=== PATIENT | female | born 1995 | race Caucasian/White ===

== ENCOUNTER 2020-11-13 17:03 | Inpatient (IN) | payer OTHER, SELFPAY ==
--- NOTE | 2020-11-13 18:40 | PM.OBTRLD ---
Visit Information Visit Information Date of evaluation: 11/13/20 On-call OB Provider: Kelsey Mendoza Reason for Evaluation: Yes rule out labor Vital Signs Vital Signs: Blood pressure 122/84, pulse of 95, temperature 36.4? Review of Systems Review of Systems Narrative: Patient complaining of contractions since yesterday that are increasing. No leakage of fluid. No fevers. No headaches, scotomata, epigastric pain. Good movement. Exam Narrative Exam Narrative: Abdomen is soft, nontender. Fetus is vertex. Extremities without edema and nontender. Evaluation Evaluation Baseline heart rate: 140 Variability: Moderate (11-25) monitor accelerations: Present Monitor Decelerations: Absent Contraction Frequency (minutes): 5 Uterine Contraction Intensity: Strong/Firm Category of Tracing: Reactive Status: Category l Cervical dilation (cm): 2 Cervical effacement (%): 100 station: 0 Diagnosis, Plan/Disposition Final Diagnosis (1) 38 weeks gestation of : Status: Acute (2) POTS (postural orthostatic tachycardia syndrome): Status: Acute Plan/Disposition Plan: Patient decided that she would prefer to do her planned here. OB Disposition: admit to hospital
--- NOTE | 2020-11-13 19:08 | PM.PREOP ---
Pre-operative Note COVID-19 COVID-19 status: Result pending Result date/Date tested (Pos, Neg/Pending): 11/13/20 Interval Note History & Physical reviewed/Exam performed by Physician: Yes Changes to H&P: No
--- NOTE | 2020-11-13 19:09 | PM.OBHP.1 ---
OB HPI Date/Time Date of admission: 11/13/20 Date Patient Seen: 11/13/20 Time Patient Seen: 19:10 History of Present Condition Chief complaint: eval of labor : 1 Para: 0 Estimated Date of Delivery: 11/22/20 Estimated Gestational Age (weeks): 38 Narrative: Ary Limon is a 24 year old female admitted for primary section for active labor and POTS syndrome Indications Operative indications ( section): elective (Pots syndrome, planned section to avoid pain in labor) History of Present care: good care (Per patient we do not have all of her records) Dating criteria: LMP confirmed by 1st trimester US Ultrasounds: normal mid trimester US (Per patient we do not have the records) Obstetrical complications: none Medical complications: cardiovascular (Pots syndrome postural orthostatic tachycardia syndrome) Preadmission Labs Blood type: O (+) positive -: Antibody screen: negative, GBS status: unknown, HBsAG: negative, HIV: negative, HSV 1: positive and RPR/VDLR: negative -: Chlamydia screen: not detected and Gonorrhea screen: not detected -: Rubella: immune Evaluation Evaluation Baseline heart rate: 140 Variability: Moderate (11-25) monitor accelerations: Present Monitor Decelerations: Absent Contraction Frequency (minutes): 5 Uterine Contraction Intensity: Strong/Firm Category of Tracing: Reactive Status: Category l Cervical dilation (cm): 2 Cervical effacement (%): 100 station: 0 Meds Home Medications and Allergies Home Medications Medication Instructions Recorded Confirmed Type valacyclovir 500 mg DAILY 11/13/20 11/13/20 History Allergies Allergy/AdvReac Type Severity Reaction Status Date / Time amoxicillin Allergy Intermediate hives Verified 11/13/20 19:21 Review of Systems Review of Systems Narrative: Good movement. No headaches, scotomata, epigastric pain. No leakage of fluid. Regular painful contractions. No current herpes outbreak. No chest pains or shortness of breath. ROS: Yes All systems reviewed with the patient and are negative except as otherwise documented Exam Narrative Exam Narrative: HEENT exam within normal limits. Lungs are clear to auscultation percussion. Heart is regular rate and rhythm no S3-S4 murmurs. Abdomen is soft, nontender. Contractions are palpably firm. Fetus is vertex. Extremities without edema and nontender . Assessment and Plan Assessment and Plan Assessment and Plan narrative: 38 week gestation scheduled for primary section for POTS syndrome arrived in active labor is requesting section. Consent form was reviewed with the patient. Risk of damage to internal structures such as bowel, bladder, ureters that could require additional surgery to repair. Risk of infection, bleeding that could require transfusion which the patient is agreeable to. Reaction to medication or anesthesia that could result in or permanent or partial disability. Consent form signed and questions answered.
[2020-11-13 19:39] LABS: Add Manual Diff / Slide Review NO; Basophils Absolute Auto 0 /uL (0-100); Basophils Percent Auto 0.3 % (0-2); Eosinophils Absolute Auto 0 /uL (0-450); Eosinophils Percent Auto 0.2 % (2-4); Hematocrit 33.8 % (36-46); Hemoglobin 11.5 g/dL (12.0-16.0); Lymphocytes Absolute Auto 1500 /uL (1100-4500); Lymphocytes Percent Auto 15.6 % (25-40); Mean Corpuscular HGB Conc 33.9 % (30-36); Mean Corpuscular Volume 94.3 fL (80-100); Monocytes Absolute Auto 700 /uL (0-900); Monocytes Percent Auto 6.8 % (3-14); Neutrophils Absolute Auto 7500 /uL (1500-7000); Neutrophils Percent Auto 77.1 % (50-75); Platelet Count 191 X10^3/uL (150-400); Red Blood Cell Count 3.58 X10^6/uL (4.0-5.2); Red Cell Distribution Width 13.4 % (11.6-14.8); White Blood Cell Count 9.7 X10^3/uL (4.5-11.0)
[2020-11-13 20:13] LABS: COVID19 - ADMIT (NP swab/PCR) Negative (Negative)
[2020-11-13] MEDS: CEFAZOLIN 1 GM VIAL 2 GM IV (20:15)
--- NOTE | 2020-11-13 20:29 | SUR.OPER ---
Supine on Padded OR bed, head on pillow, safety belt at thigh, arms secured on padded arm boards at <90 degrees abduction. Bump under right buttock. Legs uncrossed with pillow under knees, gel pad to heels, tape over blanket to lower legs.
--- NOTE | 2020-11-13 20:33 | SUR.OPER ---
FHT 144 Live male born at 2022
--- NOTE | 2020-11-13 20:56 | PM.OBCS.1 ---
Operative Date/Time/Diagnoses Date of procedure: 11/13/20 Time of procedure: 20:57 Pre-op diagnosis: 38 week gestation in active labor with planned section for POTS syndrome Post-op diagnosis: same Procedure & Clinicians Procedure: Primary low-transverse section Same procedure as scheduled: Yes Indications: 38 week gestation with planned section active labor Surgeon: Kelsey Mendoza Click Yes if Unassisted: Yes Anesthesia Type: Spinal Operative Notes Findings: Normal tubes, ovaries, uterus. Viable male . Closure Type: primary Specimen(s): cord blood Intraoperative meds administered: Duramorph and Pitocin Applied: Catheter (Momin) Estimated Blood Loss (mL): 300 Blood products transfused: none Procedure in detail: The patient was brought to the operating room where she underwent a spinal for anesthesia. She was placed in a supine position with a left lateral tilt. A Momin catheter was placed. Pulsatile stockings were placed and functional throughout the case. 2 g of Ancef were given IV prior to the incision. Warming was in place. The patient was prepped and draped in usual sterile fashion. A low transverse incision was made with a scalpel and the incision was carried down to the fascial layer which was incised transversely with scissors. The midline attachments are superiorly and inferiorly. Some bleeding was controlled Bovie. The rectus muscles were in the midline and the peritoneal incision was made with no damage to internal structures. The peritoneum was incised and superiorly and inferiorly. The incision was stretched with the surgeon and document control assistant placing traction. Bladder blade was placed and a bladder flap was developed and the bladder held away from the lower uterine segment. An incision was made in the uterus with the scalpel and the incision was extended with stretching. The head was elevated out of the abdomen and with fundal pressure by the document control assistant the baby was delivered. The was bulb suctioned for clear fluid and handed off to the warmer. Cord blood was collected. The placenta delivered spontaneously with traction. The uterus was cleaned with clean laps. The uterine incision was closed in 2 layers of 0 chromic suture the first a running locking layer the second an imbricating layer. The document control assistant was helping to expose the incision. The bladder peritoneum was repaired with 2-0 Vicryl suture. The gutters were cleaned of any remaining fluids and ovaries and tubes were observed to be normal. Adequate hemostasis was noted. The perineum was closed with 2-0 Vicryl suture. The fascia layer was closed with 0 Vicryl suture with 2 stitches. The incision was irrigated and adequate hemostasis noted. The incision was closed with interrupted 3-0 Vicryl sutures and then a subcuticular stitch of 4-0 Vicryl suture. Steri-Strips were placed. The uterus was massaged to remove any clots. The patient went to recovery room in good condition. Counts of instruments and sponges were correct. Complications: none [place] Baby 1: Infant Gender: Male Presentation: vertex Position: Left Occiput Anterior Placental Delivery Description: Expressed Cord Vessel Description: 3 Vessels score (1 min): 9 score (5 min): 9 weight: 6 lb 5 oz Post-operative Condition: stable Disposition: other ( Center) Aftercare: routine postop (Monitoring for episodes of tachycardia)
[2020-11-13 20:59] VITALS: BP 105/70; PULSE 109; RESP 18; TEMP 36.4; O2SAT 100
[2020-11-13 21:04] VITALS: BP 109/73; PULSE 89; RESP 11; O2SAT 99
[2020-11-13 21:07] VITALS: BP 116/75; PULSE 83; RESP 11; TEMP 36.4; O2SAT 100
[2020-11-13] MEDS: LACTATED RINGERS 1,000 ML 100 ML IV (21:40)
[2020-11-13] MEDS: KETOROLAC 30 MG/ML VIAL IV (21:40)
[2020-11-13] MEDS: OXYCODONE IR 5 MG TABLET PO (23:38)
[2020-11-13] MEDS: ACETAMINOPHEN 325 MG TABLET 650 MG PO (23:39)
[2020-11-14] MEDS: IBUPROFEN 600 MG TABLET PO ×3 (03:24→19:22)
[2020-11-14] MEDS: OXYCODONE IR 5 MG TABLET PO ×4 (04:00→20:54)
[2020-11-14 07:20] LABS: Add Manual Diff / Slide Review NO; Basophils Absolute Auto 0 /uL (0-100); Basophils Percent Auto 0.2 % (0-2); Eosinophils Absolute Auto 0 /uL (0-450); Eosinophils Percent Auto 0.2 % (2-4); Hematocrit 30.2 % (36-46); Hemoglobin 10.3 g/dL (12.0-16.0); Lymphocytes Absolute Auto 1100 /uL (1100-4500); Lymphocytes Percent Auto 10.6 % (25-40); Mean Corpuscular HGB Conc 34.2 % (30-36); Mean Corpuscular Hemoglobin 32.2 PG (26-34); Mean Corpuscular Volume 94.2 fL (80-100); Monocytes Absolute Auto 600 /uL (0-900); Monocytes Percent Auto 6.1 % (3-14); Neutrophils Absolute Auto 8600 /uL (1500-7000); Neutrophils Percent Auto 82.9 % (50-75); Platelet Count 153 X10^3/uL (150-400); White Blood Cell Count 10.3 X10^3/uL (4.5-11.0)
[2020-11-14 08:17] VITALS: TEMP 36.7
[2020-11-14] MEDS: ACETAMINOPHEN 325 MG TABLET 650 MG PO ×2 (08:17→16:32)
[2020-11-14] MEDS: DOCUSATE 250 MG CAPSULE PO (08:19)
--- NOTE | 2020-11-14 09:30 | PM.OBPN.1 ---
Subjective - OB Subjective Patient comments: incisional pain baby status: nursing well feeding status: exclusively breast feeding Date Patient Seen: 11/14/20 Time Patient Seen: 14:30 Interval history: Postoperative primary low-transverse section. Patient has not gotten out of bed yet. Pain is under control. No headaches. Breast-feeding is going well pain Exam Vital Signs (past 8 hours): - Blood pressure 90/60, temperature 98.8?, pulse of 101 11/14/20 08:17 Temperature 98.0 F Oxygen Delivery Method Room Air Narrative Exam Narrative: Abdomen is soft, nontender. Uterus is firm, U -2, appropriately tender. Dressing is clean, dry, intact. Mild lochia. Extremities without edema and nontender. Objective Labs Result Diagrams: 11/14/20 06:38 Labs: Laboratory Results - last 24 hr 11/13/20 11/13/20 11/13/20 19:00 19:21 19:21 WBC 9.7 RBC 3.58 L Hgb 11.5 L Hct 33.8 L MCV 94.3 MCH 32.0 MCHC 33.9 RDW 13.4 Plt Count 191 Neut % (Auto) 77.1 H Lymph % (Auto) 15.6 L [place] % (Auto) 6.8 Eos % (Auto) 0.2 L Baso % (Auto) 0.3 Neut # (Auto) 7500 H Lymph # (Auto) 1500 [place] # (Auto) 700 Eos # (Auto) 0 Baso # (Auto) 0 SARS-CoV-2 (PCR) Negative Blood Type O Positive Antibody Screen Negative 11/14/20 06:38 WBC 10.3 RBC 3.20 L Hgb 10.3 L Hct 30.2 L MCV 94.2 MCH 32.2 MCHC 34.2 RDW 13.0 Plt Count 153 Neut % (Auto) 82.9 H Lymph % (Auto) 10.6 L [place] % (Auto) 6.1 Eos % (Auto) 0.2 L Baso % (Auto) 0.2 Neut # (Auto) 8600 H Lymph # (Auto) 1100 [place] # (Auto) 600 Eos # (Auto) 0 Baso # (Auto) 0 SARS-CoV-2 (PCR) Blood Type Antibody Screen Assessment & Plan Assessment and Plan (1) 38 weeks gestation of : Status: Deleted (2) POTS (postural orthostatic tachycardia syndrome): Status: Acute (3) Delivery by section at 37-39 weeks of gestation due to labor: Status: Acute Plan day: 1 plan OB: routine postop care Comments: Patient denies any symptoms of her POTS. She will get up to ambulate later today and Momin removed at that time. Monitor for any changes. Time Spent With Patient Time: Total time spent is greater than 50% in coordination of care (as documented) at patient's floor/unit and/or counseling patient: Time with patient: less than 15 minutes
[2020-11-15] MEDS: IBUPROFEN 600 MG TABLET PO ×3 (00:58→22:58)
[2020-11-15] MEDS: OXYCODONE IR 5 MG TABLET PO ×4 (00:58→19:59)
[2020-11-15] MEDS: ACETAMINOPHEN 325 MG TABLET 650 MG PO ×3 (06:17→19:59)
[2020-11-15] MEDS: DOCUSATE 250 MG CAPSULE PO (08:51)
--- NOTE | 2020-11-15 17:26 | P.PNOB_ITS ---
Subjective - OB Subjective Patient comments: incisional pain baby status: doing well (Under bili lights) feeding status: breast and bottle feeding Date Patient Seen: 11/15/20 Time Patient Seen: 17:27 Interval history: Patient is postop primary section with positional o rthostatic tachycardia. She is urinating. She is ambulatory. She is passing gas. She denies headaches, scotomata, epigastric pain. Exam Vital Signs (past 8 hours): Blood pressure 96/63, pulse 74, temperature 98.5? Oxygen Delivery Method Room Air Narrative Exam Narrative: Abdomen is soft, nontender. Uterus is firm, U -2, appropriately tender. Extremities without edema and nontender. Mild lochia. Objective Labs Result Diagrams: 11/14/20 06:38 Assessment & Plan Assessment and Plan (1) 38 weeks gestation of : Status: Deleted (2) POTS (postural orthostatic tachycardia syndrome): Status: Acute (3) Delivery by section at 37-39 weeks of gestation due to labor: Status: Acute Plan day: 1 plan OB: routine postop care Comments: Patient so far has done well without having positional orthostatic tachycardia. Likely discharge in a.m. if continues to be stable. Routine precautions for discharge were reviewed with the patient. Time Spent With Patient Time: Total time spent is greater than 50% in coordination of care (as documented) at patient's floor/unit and/or counseling patient: Time with patient: less than 15 minutes
[2020-11-16] MEDS: OXYCODONE IR 5 MG TABLET PO ×2 (02:07→10:23)
[2020-11-16] MEDS: ACETAMINOPHEN 325 MG TABLET 650 MG PO ×2 (02:08→10:23)
[2020-11-16] MEDS: IBUPROFEN 600 MG TABLET PO ×2 (04:50→12:40)
[2020-11-16 05:35] VITALS: BP 109/73; PULSE 98; RESP 16; TEMP 37.2
--- NOTE | 2020-11-16 08:51 | PM.OBDS.1 ---
Discharge Providers Provider Date of admission: 11/13/20 17:03 Discharge Date: 11/16/20 Primary care physician: Timur Schrader MD Consults: 11/13/20 21:04 Consult to Security Operations Engineer Routine Comment: Discharge provider: Jill Mayberry MD Summary Hospital Course Date Patient Seen: 11/16/20 Time Patient Seen: 08:51 Diagnoses: primary section Hospital Course: This patient is a 24 yo POD#3 s/p primary section for POTS in the setting of term labor. The patient's postoperative course was uncomplicated, and she remained admitted due to need for phototherapy. Peripartum Data Infant Delivery Method: Section complications: none [place] 1: Gender: Male Disposition of : home Discharge Diagnosis (1) 38 weeks gestation of : Status: Deleted (2) POTS (postural orthostatic tachycardia syndrome): Status: Acute (3) Delivery by section at 37-39 weeks of gestation due to labor: Status: Acute Status at Discharge Cognitive/behavioral status at discharge: oriented Functional status at discharge: independent ambulation Overall status at discharge: patient is progressing back to baseline Time Spent with Patient Time attestation: Total time spent providing and/or coordinating discharge services: Time spent: Less than 30 minutes Objective Labs Result Diagrams: 11/14/20 06:38 Exam Vital Signs (past 8 hours): Oxygen Delivery Method Room Air Const General: cooperative, healthy appearing and comfortable Resp Effort & Inspection: normal respiratory effort Auscultation: clear to auscultation bilaterally Cardio Rate: regular rate Rhythm: regular rhythm GI Palpation: soft and No tender Extrem General: normal to inspection Discharge Plan Discharge Plan Patient Disposition: Home Discharge orders & Medications Prescriptions: New ibuprofen 600 mg Tablet 600 mg PO Q6H PRN (Reason: Fever/Mild Pain (1-3)) Qty: 30 RF: 0 oxycodone 5 mg Tablet 5 mg PO Q4H PRN (Reason: Pain, Moderate (4-6)) Qty: 30 RF: 0 Discontinued valacyclovir 500 mg Tablet 500 mg DAILY RF: 0 Follow up/Referrals: Timur Schrader MD [Primary Care Provider] - Kelsey Mendoza MD [Physician] - 1 Week (Aquacel removal) Diet/Activity/Treatments Diet: Regular Activity: Nothing in the vagina for 6 weeks. Avoid lifting more than 10 lbs for 6 weeks. If you have increasing bleeding, fevers, chills, nausea, vomiting, headaches, or any other symptoms or concerns, call or come to the emergency room. Skin/Wound/Dressing Care Report to your healthcare provider any signs of infection, such as:: chills, fever and increased pain Dressing: Leave dressing on until one-week postop appointment Visit Report/Discharge Packet Instructions: DI for Discharge Data Primary Care Provider: Timur Schrader
[2020-11-16] MEDS: DOCUSATE 250 MG CAPSULE PO (10:23)
[2020-11-16] MEDS: MEASLES,MUMPS,RUBELLA VACC/PF 0.5 ML VIAL SUBCUT (12:38)
== END 2020-11-16 12:55 | disposition home or self-care (01) | DRG 788 ==
PROVIDERS: Specialist; Admitting Provider Obstetrics & Gynecology; PCP Obstetrics & Gynecology; Referring Provider Obstetrics & Gynecology; Visit Provider Obstetrics & Gynecology
PROC: 10D00Z1 Extraction of Products of Conception, Low, Open Approach (ICD-10-PCS; CPT 59514; principal; 2020-11-13 19:00)
DX: O75.82 Onset (spontaneous) of labor after 37 completed weeks of gestation but before 39 completed weeks gestation, with delivery by (planned) cesarean section (principal); Z3A.38 38 weeks gestation of pregnancy; Z37.0 Single live birth; O99.891 Other specified diseases and conditions complicating pregnancy; I49.8 Other specified cardiac arrhythmias; Z20.822 Contact with and (suspected) exposure to COVID-19
CPT/HCPCS: 36415; 59050; 59514; 85025; 86850; 86900; 86901; 87635; 99222; 99238; C9803; G0379; J0690; J1885; J2274; J2590

== ENCOUNTER 2023-10-13 13:13 | Emergency (ER) | payer OTHER, SELFPAY ==
[2023-10-13 13:25] VITALS: BP 184/77; PULSE 124; RESP 18; TEMP 37; O2SAT 98; BMI 20.1
[2023-10-13 13:54] LABS: Add Manual Diff / Slide Review NO; Basophils Absolute Auto 0 /uL (0-100); Basophils Percent Auto 0.4 % (0-2); Eosinophils Absolute Auto 0 /uL (0-450); Hematocrit 46.2 % (36-46); Hemoglobin 15.7 g/dL (12.0-16.0); Lymphocytes Absolute Auto 1000 /uL (1100-4500); Lymphocytes Percent Auto 8.6 % (25-40); Mean Corpuscular Hemoglobin 30.5 PG (26-34); Mean Corpuscular Volume 89.6 fL (80-100); Monocytes Absolute Auto 400 /uL (0-900); Monocytes Percent Auto 3.1 % (3-14); Neutrophils Absolute Auto 10600 /uL (1500-7000); Neutrophils Percent Auto 87.9 % (50-75); Platelet Count 386 X10^3/uL (150-400); Red Blood Cell Count 5.16 X10^6/uL (4.0-5.2); Red Cell Distribution Width 13.5 % (11.6-14.8); White Blood Cell Count 12.1 X10^3/uL (4.5-11.0)
[2023-10-13 14:06] LABS: Alanine Aminotransferase 32 IU/L (<35); Albumin 5.7 g/dL (3.5-5.0); Albumin Globulin Ratio 1.4 (1.0-2.8); Alkaline Phosphatase 108 U/L (38-126); Aspartate Aminotransferase 32 IU/L (14-36); BUN Creatinine Ratio 14.1 (6-22); Bilirubin Total 2.1 mg/dL (0.2-1.3); Blood Urea Nitrogen 11 mg/dL (7-17); Calcium 10.3 mg/dL (8.4-10.2); Carbon Dioxide 16 mmol/L (22-32); Chloride 102 mmol/L (98-107); Estimated Glomerular Filt Rate > 60 mL/min (>60); Globulin 4.1 g/dL (1.7-4.1); Glucose 94 mg/dL (70-100); HEMOLYSIS < 15 (0-50); Lipase 61 U/L (23-300); Potassium 4.3 mmol/L (3.4-5.1); Sodium 138 mmol/L (137-145); Total Protein 9.8 g/dL (6.3-8.2)
[2023-10-13] MEDS: SODIUM CHLORIDE 0.9% 1,000 ML 1000 ML IV (14:19)
[2023-10-13] MEDS: ONDANSETRON 4 MG/2 ML INJ IV (14:23)
--- NOTE | 2023-10-13 14:32 | ED.GENADULT ---
HPI - General Adult General Chief complaint: Abdominal Pain Stated complaint: weakness/abd pain/ T-2 struggling Time Seen by Provider: 10/13/23 13:25 Source: patient Mode of arrival: Ambulatory History of Present Illness HPI narrative: Patient is a 27-year-old female who is here for evaluation of generalized abdominal pain. States that a couple weeks ago she had very sharp right upper quadrant abdominal pain that lasted a short period of time and then resolved. Since that time she has had decreased appetite, nausea and vomiting. Alternating diarrhea and constipation. She has had generalized abdominal discomfort. No fevers. No urinary symptoms. No change in bowel habits. She has seen her primary doctor. She has had C-sections but no other abdominal surgeries. Related Data Previous Rx's Medication Instructions Recorded hydrocodone 5 mg-acetaminophen 325 1 tab PO Q8H PRN pain #10 tabs 10/13/23 mg tablet ketorolac 10 mg tablet 10 mg PO Q8H PRN pain #30 tabs 10/13/23 ondansetron 4 mg disintegrating 4 mg PO Q6H PRN nausea and 10/13/23 tablet vomiting #14 tabs tamsulosin 0.4 mg capsule (Flomax) 0.8 mg (2 x 0.4 mg) PO DAILY #30 10/13/23 caps Allergies Allergy/AdvReac Type Severity Reaction Status Date / Time amoxicillin Allergy Intermediate hives Verified 11/20/20 11:52 Review of Systems Constitutional Constitutional: Reports system reviewed and no additional complaints, except as documented Gastrointestinal Gastrointestinal: Reports system reviewed and no additional complaints, except as documented Genitourinary Genitourinary: Reports system reviewed and no additional complaints, except as documented Integumentary/Breasts Skin/Breast: Reports system reviewed and no additional complaints, except as documented Neurologic Neurologic: Reports system reviewed and no additional complaints, except as documented Patient History Social History Smoking Status: Current some day smoker Smoking Status: Current some day smoker tobacco type: cigarettes and vaping Substance Use Type: marijuana Exam Initial Vital Signs Initial Vital Signs: Vital Signs Temperature 98.6 F 10/13/23 13:25 Pulse Rate 124 H 10/13/23 13:25 Respiratory Rate 18 10/13/23 13:25 Blood Pressure 184/77 H 10/13/23 13:25 Pulse Oximetry 98 10/13/23 13:25 Oxygen Delivery Method Room Air 10/13/23 13:25 Const General: cooperative, comfortable and No ill appearing HENMT Head: normal to inspection and normocephalic Resp Effort & Inspection: normal respiratory effort Cardio Rate: regular rate GI Inspection: normal to inspection and non-distended Palpation: soft, No firm, No guarding and tender Back/Spine/Pelvis Back: No CVA tenderness Skin General: no rashes or lesions noted Neuro General: patient alert, patient awake and moves all extremities Extrem General: normal to inspection Course Orders Ordered: ED Orders 10/13/23 13:40 Ictotest Urine Stat Urinalysis and Microscopic Stat Urine Culture Stat 10/13/23 13:46 Complete Blood Count AUTO DIFF Stat Comprehensive Metabolic Panel Stat Lipase Stat Test Serum,Qual Stat 10/13/23 14:03 Covid-19 + FLU A/B + RSV - PCR Stat 10/13/23 14:32 CT abdomen pelvis w con Stat Discontinued Medications Sodium Chloride (Normal Saline 0.9%) 1,000 mls @ 1,000 mls/hr IV BOLUS ONE Stop: 10/13/23 14:35 Last Infusion: 10/13/23 15:51 Dose: Infused Documented By: Admin: 10/13/23 14:19 Dose: 1,000 mls/hr Documented By: SYED Ondansetron HCl (Ondansetron 4 Mg/2 Ml Inj) 4 mg IV NOW ONE Stop: 10/13/23 13:38 Last Admin: 10/13/23 14:23 Dose: 4 mg Documented By: SYED Vital Signs Vital signs: Vital Signs - 8 hr 10/13/23 13:25 10/13/23 16:20 10/13/23 16:21 Temperature 98.6 F Pulse Rate 124 H 87 95 H Respiratory Rate 18 18 Blood Pressure 184/77 H 109/66 Pulse Oximetry 98 98 99 Oxygen Delivery Method Room Air Room Air 10/13/23 16:30 10/13/23 16:30 Temperature Pulse Rate 94 H Respiratory Rate Blood Pressure 108/65 Pulse Oximetry 99 Oxygen Delivery Method Medical Decision Making Lab Data Lab results reviewed: Yes I reviewed the patient's lab results. 10/13/23 13:46 10/13/23 13:46 Labs: Lab Results 10/13/23 10/13/23 10/13/23 Range/Units 13:40 13:46 14:03 WBC 12.1 H (4.5-11.0) X10^3/uL RBC 5.16 (4.0-5.2) X10^6/uL Hgb 15.7 (12.0-16.0) g/dL Hct 46.2 H (36-46) % MCV 89.6 (80-100) fL MCH 30.5 (26-34) PG MCHC 34.0 (30-36) % RDW 13.5 (11.6-14.8) % Plt Count 386 (150-400) X10^3/uL Neut % (Auto) 87.9 H (50-75) % Lymph % (Auto) 8.6 L (25-40) % [place] % (Auto) 3.1 (3-14) % Eos % (Auto) 0.0 L (2-4) % Baso % (Auto) 0.4 (0-2) % Neut # (Auto) 69760 H (3836-6550) /uL Lymph # (Auto) 1000 L (7791-6071) /uL [place] # (Auto) 400 (0-900) /uL Eos # (Auto) 0 (0-450) /uL Baso # (Auto) 0 (0-100) /uL Sodium 138 (137-145) mmol/L Potassium 4.3 (3.4-5.1) mmol/L Chloride 102 (98-107) mmol/L Carbon Dioxide 16 L (22-32) mmol/L BUN 11 (7-17) mg/dL Creatinine 0.78 (0.52-1.04) mg/dL Estimated GFR > 60 (>60) mL/min BUN/Creatinine Ratio 14.1 (6-22) Glucose 94 (70-100) mg/dL Calcium 10.3 H (8.4-10.2) mg/dL Total Bilirubin 2.1 H (0.2-1.3) mg/dL AST 32 (14-36) IU/L ALT 32 (<35) IU/L Alkaline Phosphatase 108 (38-126) U/L Total Protein 9.8 H (6.3-8.2) g/dL Albumin 5.7 H (3.5-5.0) g/dL Globulin 4.1 (1.7-4.1) g/dL Albumin/Globulin Ratio 1.4 (1.0-2.8) Lipase 61 (23-300) U/L Serum , Qual Negative (Negative) Urine Color Yellow Urine Appearance Clear Urine pH 5.5 (4.5-8.0) Ur Specific [place] >=1.030 H (1.000-1.035) Urine Protein 1+ H (Negative) Urine Glucose (UA) Negative (Negative) g/dL Urine Ketones 3+ H (NEGATIVE) Urine Occult Blood 1+ H (Negative) Urine Nitrate Negative (Negative) Urine Bilirubin 1+ H (NEGATIVE) Ur Bilirubin Confirm Negative (Negative) Urine Urobilinogen 0.2 (0.2) E.U./dL Ur Leukocyte Esterase Negative (NEGATIVE) Urine RBC 0-1/hpf (0-5/HPF) Urine WBC 1-5/hpf (0-5/HPF) Ur Squamous Epith Cells 10-30 /hpf H (0-5/HPF) Urine Bacteria Few (2-10) H (None) Urine Mucus 1+ H (Negative) Ur Culture Indicated? Cult not indicated Vol Urine Centrifuged 10ml (spun) SARS-CoV-2 (PCR) Negative (Negative) Influenza A (RT-PCR) Flu a negative (NEGATIVE) Influenza B (RT-PCR) Flu b negative (NEGATIVE) RSV (PCR) Negative (Negative) Imaging Data CT scan - abdomen/pelvis: Radiologist's Impression: PROCEDURE: CT ABDOMEN PELVIS W CON INDICATIONS: Generalized abdominal pain with nausea and vomiting TECHNIQUE: After the administration of intravenous contrast, axial sections acquired from the lung bases to the pubic symphysis. Coronal and sagittal reformats were performed. For radiation dose reduction, the following was used: automated exposure control, adjustment of mA and/or kV according to patient size. COMPARISON: None. FINDINGS: Image quality: Diagnostic. Lower Chest: No significant findings. ABDOMEN: Liver: No solid mass. Gallbladder: No radiopaque gallstones or wall thickening. Biliary ducts: No biliary dilation. Pancreas: No ductal dilation. Spleen: Size is within normal limits. Adrenal Glands: No adrenal nodules. Kidneys and Ureters: There is an 7 mm left proximal ureteral stone (HU 830), series 2, image 32. No significant upstream hydroureteronephrosis. There are additional punctate nonobstructing renal calculi in the left lower pole. No solid mass. No complex renal cystic lesion which requires follow up. Stomach and Bowel: Normal colonic caliber, without significant wall thickening. Normal caliber appendix in the right lower quadrant. Peritoneum: No abnormal intraperitoneal fluid. No free air. Ventral Wall: No significant ventral hernia. Abdominal Nodes: No retroperitoneal or mesenteric adenopathy by size criteria. Vessels: Aorta and inferior vena cava are normal in size. PELVIS: Pelvic Organs: Unremarkable. Bladder: No bladder wall thickening, accounting for underdistention. Pelvic Nodes: No enlarged lymph nodes. Miscellaneous: No inguinal hernias are seen. Bones: No aggressive osseous abnormality. IMPRESSION: Left proximal 7 mm ureteral calculus without significant upstream left hydroureteronephrosis. Additional 2 punctate left inferior pole nonobstructing calculi. MDM Narrative Medical decision making narrative: Patient does have a proximal left-sided large ureteral stone with hydro. No signs of a urinary tract infection today. Kidney function is unremarkable. The rest of her CT scan is unremarkable. Discussed the case with Dr. Longoria on-call for Urology who recommended starting on tamsulosin. Waiting for the culture before treating with any antibiotics and follow-up in his office. Discussed all this with the patient. She was given return precautions follow-up instructions. She expressed understanding and agreement. Discharge Plan Departure Patient Disposition: Home Clinical Impression: Left ureteral stone Instructions: DI for Kidney Stones Activity Restrictions/Additional Instructions: Take the medications as directed. I recommend that you contact the Urology Department of the number provided below for a follow-up. Contact your primary care doctor for follow-up as well. Return to the emergency department for new symptoms to include pain that has not controlled with medications, inability to tolerate fluids or the inability to urinate. Prescriptions: New tamsulosin [Flomax] 0.4 mg capsule 0.8 mg PO DAILY Qty: 30 0RF ondansetron 4 mg tablet,disintegrating 4 mg PO Q6H PRN (Reason: nausea and vomiting) Qty: 14 0RF ketorolac 10 mg tablet 10 mg PO Q8H PRN (Reason: pain) Qty: 30 0RF Rx Instructions: maximum total duration of 5 days from all oral, intranasal, or parenteral formulations hydrocodone-acetaminophen 5-325 mg tablet 1 tab PO Q8H PRN (Reason: pain) Qty: 10 0RF Referrals: Timur Schrader MD [Primary Care Provider] - Kali Longoria MD [Physician] - Stand Alone Forms: Patient Portal/API, Work Release Note
[2023-10-13 14:50] LABS: Pregnancy Test Serum,Qual Negative (Negative)
[2023-10-13 15:00] LABS: Influenza A - CEPHEID Flu A NEGATIVE (NEGATIVE); Influenza B - CEPHEID Flu B NEGATIVE (NEGATIVE); Respiratory Syncytial Virus Negative (Negative)
[2023-10-13 15:03] LABS: COVID-19 CEPHEID 4-PLEX PCR Negative (Negative)
[2023-10-13 16:06] LABS: Appearance Urine UA CLEAR; Bilirubin Urine UA 1+ (NEGATIVE); Color Urine UA YELLOW; Glucose Urine UA NEGATIVE (Negative); Ketones Urine UA 3+ (NEGATIVE); Leukocyte Esterase Urine UA NEGATIVE (NEGATIVE); Nitrite Urine UA NEGATIVE (Negative); Occult Blood Urine UA 1+ (Negative); Protein Urine UA 1+ (Negative); Specific Gravity Urine UA >=1.030 (1.000-1.035); Urobilinogen Urine UA 0.2 E.U./dL (0.2)
[2023-10-13 16:09] LABS: pH Urine UA 5.5 (4.5-8.0)
[2023-10-13 16:15] LABS: Bacteria Urine Few (2-10); Culture Indicated Urine Cult Not Indicated; Ictotest Urine Negative (Negative); Mucus Urine 1+ (Negative); RBC Urine 0-1/HPF (0-5/HPF); Squamous Epithelial Cell Urine 10-30 /HPF (0-5/HPF); Urine Volume 10mL (spun); WBC Urine 1-5/HPF (0-5/HPF)
[2023-10-13 16:20] VITALS: BP 109/66; PULSE 87; RESP 18; O2SAT 98
[2023-10-13 16:21] VITALS: PULSE 95; O2SAT 99
[2023-10-13 16:30] VITALS: BP 108/65; PULSE 94; O2SAT 99
== END 2023-10-13 17:00 | disposition home or self-care (01) ==
PROVIDERS: Emergency Provider Emergency Medicine; PCP Obstetrics & Gynecology
DX: N20.1 Calculus of ureter (principal); Z20.822 Contact with and (suspected) exposure to COVID-19
CPT/HCPCS: 0241U; 74177; 80053; 81001; 83690; 84703; 85025; 87086; 96361; 96374; 99284; J2405; Q9967

== ENCOUNTER → 2023-10-20 12:58 | Outpatient (CLI) | payer OTHER, SELFPAY ==
--- NOTE | 2023-10-20 13:00 | DI.RAD.S_ITS ---
PROCEDURE: XR KUB INDICATIONS: Ureteral calculus TECHNIQUE: One view of the abdomen acquired. COMPARISON: [facility], CT, CT ABDOMEN PELVIS WO CON, 10/20/2023, 15:47. FINDINGS: Surgical changes and devices: None. Bowel: Bowel gas pattern is normal. Soft tissues: No suspicious abdominal calcifications. Visualized solid organ contours appear normal in size. Left ureteral stone not visualized. Punctate left-sided stones project over the left kidney. Bones: No suspicious bony lesions. IMPRESSION: No ureteral stone identified. Dictated by: Jh Parkinson M.D. on 10/20/2023 at 15:56 Approved by: Jh Parkinson M.D. on 10/20/2023 at 15:56
== END ==
LOC: RAD 12:59
PROVIDERS: PCP Physician Assistant; Referring Provider Urology; Visit Provider Urology
DX: N20.1 Calculus of ureter (principal); Z87.442 Personal history of urinary calculi
CPT/HCPCS: 74018

== ENCOUNTER → 2023-10-20 15:12 | Outpatient (CLI) | payer OTHER, SELFPAY ==
--- NOTE | 2023-10-20 15:14 | DI.CT.S_ITS ---
PROCEDURE: CT ABDOMEN PELVIS WO CON INDICATIONS: Left ureteral calculus TECHNIQUE: Axial sections were acquired from the lung bases to the pubic symphysis. Coronal and sagittal reformats were performed. For radiation dose reduction, the following was used: automated exposure control, adjustment of mA and/or kV according to patient size. COMPARISON: [facility], CT, CT ABDOMEN PELVIS W CON, 10/13/2023, 14:42. FINDINGS: Image quality: Diagnostic. Lower Chest: No significant findings. URINARY: Right Kidney: Small burden of punctate stones. No hydronephrosis. Right Ureter: No hydroureter. Left Kidney: Small burden of punctate stones. No hydronephrosis. Left Ureter: Stable 6 mm nonobstructing stone in the proximal left ureter (series 2, image 29). Bladder: Normal wall thickness. No stones. ABDOMEN: Liver: No contour-deforming solid mass. Gallbladder: No radiopaque gallstones or wall thickening. Biliary ducts: No biliary dilation. Pancreas: No ductal dilation. Spleen: Size is within normal limits. Adrenal Glands: No adrenal nodules. Stomach and Bowel: Normal colonic caliber, without significant wall thickening. Normal appendix. No diverticular disease. Peritoneum: No abnormal intraperitoneal fluid. No free air. Ventral Wall: Small umbilical hernia containing fat. Abdominal Nodes: No enlarged retroperitoneal or mesenteric lymph nodes. Vessels: Aorta and inferior vena cava are normal in size. PELVIS: Pelvic Organs: Unremarkable. Pelvic Nodes: Unremarkable. Miscellaneous: No inguinal hernias are seen. Bones: Unremarkable. IMPRESSION: Stable 6 mm stone in the proximal left ureter, without hydronephrosis. Stable small burden of punctate, bilateral nonobstructing nephrolithiasis. Dictated by: Jh Parkinson M.D. on 10/20/2023 at 17:13 Approved by: Jh Parkinson M.D. on 10/20/2023 at 17:15
== END ==
PROVIDERS: PCP Physician Assistant; Referring Provider Urology; Visit Provider Urology
DX: N20.2 Calculus of kidney with calculus of ureter (principal); K42.9 Umbilical hernia without obstruction or gangrene; Z87.442 Personal history of urinary calculi
CPT/HCPCS: 74018; 74176

== ENCOUNTER → 2023-10-25 11:17 | Outpatient (CLI) | payer OTHER, SELFPAY ==
--- NOTE | 2023-10-25 11:19 | DI.RAD.S_ITS ---
PROCEDURE: XR KUB INDICATIONS: Left ureteral stone TECHNIQUE: One view of the abdomen acquired. COMPARISON: [facility], , XR KUB, 10/20/2023, 13:13. FINDINGS: Surgical changes and devices: None. Bowel: Bowel gas pattern is normal. Soft tissues: No suspicious abdominal calcifications. Visualized solid organ contours appear normal in size. Bones: No suspicious bony lesions. IMPRESSION: No acute abnormality. Approved by: Ron Barriga M.D. on 10/25/2023 at 18:52
== END ==
PROVIDERS: PCP Physician Assistant; Referring Provider Urology; Visit Provider Urology
DX: N20.1 Calculus of ureter (principal); R31.29 Other microscopic hematuria
CPT/HCPCS: 74018

== ENCOUNTER 2023-11-02 10:55 | Day surgery (SDC) | payer OTHER, SELFPAY ==
[2023-10-27 10:43] VITALS: BMI 20.1
[2023-11-02] VITALS (8 sets, daily range): BP systolic 79–118; BP diastolic 46–83; PULSE 82–113; RESP 12–18; TEMP 36.3–37.3; O2SAT 97–100; BMI 18.4
[2023-11-02] MEDS: LACTATED RINGERS 1,000 ML 21 ML IV (11:50)
--- NOTE | 2023-11-02 12:06 | PM.PREOP ---
Pre-operative Note COVID-19 COVID-19 status: Not tested Interval Note History & Physical reviewed/Exam performed by Physician: Yes Changes to H&P: No
[2023-11-02] MEDS: CIPROFLOXACIN 400 MG/200 ML PIGGYBACK 200 MG IV (12:25)
[2023-11-02] MEDS: iopamidoL 30 ML VIAL INJ (12:42)
--- NOTE | 2023-11-02 12:44 | SUR.OPER ---
Lithotomy on padded OR bed, head on pillow, arms secured on padded arm boards at <90 degrees abduction. Legs secured in padded yellow fins stirrups.
--- NOTE | 2023-11-02 13:19 | PM.OP.1 ---
Procedure & Clinicians Procedure: Cystoscopy with left retrograde pyelogram and upper pole left ureteral stent placement. Same procedure as scheduled: Yes Indications: This 27-year-old female presented with complaints of abdominal pain was found to have a 7 mm left ureteral calculus. She presents at this time for cystoscopy retrograde pyelogram and possible left ureteroscopy with laser lithotripsy and stone basketing. Surgeon: Kali Longoria Click Yes if Unassisted: Yes Anesthesia Type: General Operative Notes Findings: At cystoscopy external genitalia was normal. The urethral meatus and urethra were normal along its length. On the right the ureteral orifice appeared to be in normal position with clear efflux. 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 The stone was in the upper pole moiety and the ureter was quite narrow. The upper pole moiety is the smaller of the 2 the lower pole at retrograde had a rather more normal-appearing ureter and normal-appearing collecting system without filling defect. Given the narrowness it was elected to attempt to place a stent and in fact it was difficult to even attempt to pass a 7 [place] stent. In fact again resistance was encountered and So a 6 [place] multi length stent was left in good position in the left upper pole collecting system without a string. Closure Type: not applicable Specimen(s): none sent Prosthetic devices, grafts, tissues, transplants, or devices: 6 [place] by multi length stent in the upper pole collecting system on the left without a string. Estimated Blood Loss (mL): 5 Procedure in detail: Procedure in detail: After informed consent was obtained, the patient was identified brought to the operating room where she is placed in supine position on the table. Once there anesthesia was induced and maintained. Ensuring an adequate level of anesthesia the patient was transitioned to the lithotomy position where she was prepped, draped and prepared in a sterile fashion for Transurethral procedure. After prepping, draping, ensuring an adequate level of anesthesia, time-out and administration of antibiotics a 22 [place] cysts to the urethra and into the bladder where cystoscopy was performed. Given the duplicated collecting system retrograde pyelogram was performed which revealed a very small upper pole ureter which had the stone. And as described above a more normal appearing lower pole collecting system. Because of the narrow was it was elected to place a stent in that I did not believe I could get a scope safely up to the stone and treat it. I attempted to pass a 7 [place] but ran into significant resistance which required more force than I was comfortable applying. So this was backed out and the 6 [place] stent was passed over the wire positioned in the renal pelvis of the upper pole via fluoroscopic visualization in the bladder under direct vision. On harness was removed in the stent was left in good position. At this point the patient was awakened transferred to the postanesthesia care unit having tolerated the procedure well. She was transferred to the postanesthesia care unit for recovery there were no complications. We will reschedule the patient 2-3 weeks from now to let the ureter dilate so that we might more safely reach the stone and treat it without ureteral injury. Complications: none Post-operative Condition: stable Disposition: PACU Plan for aftercare: Patient to follow up my office in 10 days with a KUB.
--- NOTE | 2023-11-02 13:36 | DI.RAD.S_ITS ---
PROCEDURE: XR ABDOMEN MIN 2V TECHNIQUE: Fluoroscopic guidance utilized for a left-sided nephroureteral stent placement. COMPARISON: None. FINDINGS: Fluoroscopic images submitted for a left-sided nephroureteral stent placement.. Please see operative note for further discussion. 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 IMPRESSION: Fluoroscopic guidance. Dictated by: Jh Parkinson M.D. on 11/02/2023 at 14:02 Approved by: Jh Parkinson M.D. on 11/02/2023 at 14:03
[2023-11-02] MEDS: PHENAZOPYRIDINE 100 MG TABLET 200 MG PO (13:51)
[2023-11-02] MEDS: OXYBUTYNIN 5 MG TABLET PO (13:51)
[2023-11-02] MEDS: ACETAMINOPHEN 325 MG TABLET 650 MG PO (13:51)
== END 2023-11-02 14:16 | disposition home or self-care (01) ==
PROVIDERS: PCP Physician Assistant; Referring Provider Urology; Visit Provider Urology
PROC: (CPT 52356; principal; 2023-11-02 12:15)
DX: N20.1 Calculus of ureter (principal)
CPT/HCPCS: 52356; 74019; 76000; J0744; J1100; J1885; J2250; J2405; J2704; J3010; Q9967

== ENCOUNTER → 2023-11-11 22:50 | Outpatient (CLI) | payer OTHER, SELFPAY ==
--- NOTE | 2023-11-11 22:57 | DI.RAD.S_ITS ---
PROCEDURE: XR KUB INDICATIONS: Follow-up stent placement kidney stone TECHNIQUE: One view of the abdomen acquired. COMPARISON: [facility], CT, CT ABDOMEN PELVIS WO CON, 10/20/2023, 15:47. [facility], CR, XR KUB, 10/25/2023, 11:42. FINDINGS: Surgical changes and devices: Interval placement of left double-J ureteral stent. Bowel: Bowel gas pattern is normal. Soft tissues: 6 mm calcification projects over the left lateral aspect of the L2 vertebral body and immediately adjacent to the left ureteral stent compatible with previously seen proximal left ureteral stone. Other punctate nonobstructing bilateral renal stones are not well visualized radiographically. No other suspicious abdominal calcifications. Visualized solid organ contours appear normal in size. Bones: No suspicious bony lesions. IMPRESSION: Interval placement of left double-J ureteral stent. 6 mm left upper abdominal calcification compatible with previously described left proximal ureteral stone. Otherwise, no acute radiographic abnormalities identified in the abdomen/pelvis. Dictated by: Lawrence Abebe M.D. on 11/12/2023 at 10:46 Approved by: Lawrence Abebe M.D. on 11/12/2023 at 10:49
== END ==
PROVIDERS: PCP Physician Assistant; Referring Provider Urology; Visit Provider Urology
DX: N20.1 Calculus of ureter (principal); Q62.5 Duplication of ureter; Z96.0 Presence of urogenital implants
CPT/HCPCS: 74018

== ENCOUNTER → 2023-11-12 08:08 | Outpatient (CLI) | payer OTHER, SELFPAY | PROVIDERS: PCP Physician Assistant; Visit Provider Urology | DX: R39.9 Unspecified symptoms and signs involving the genitourinary system (principal) | CPT/HCPCS: 81002; 87086 ==

== ENCOUNTER → 2023-11-25 08:29 | Outpatient (CLI) | payer OTHER, SELFPAY | PROVIDERS: PCP Physician Assistant; Visit Provider Urology | DX: N20.0 Calculus of kidney (principal) | CPT/HCPCS: 87086 ==

== ENCOUNTER 2023-11-30 06:35 | Day surgery (SDC) | payer OTHER, SELFPAY ==
[2023-11-24 12:30] VITALS: BMI 20.1
[2023-11-30] VITALS (7 sets, daily range): BP systolic 78–102; BP diastolic 38–75; PULSE 68–109; RESP 10–18; TEMP 36.2–37.2; O2SAT 97–99; BMI 17.9
[2023-11-30] MEDS: LACTATED RINGERS 1,000 ML 21 ML IV (07:18)
--- NOTE | 2023-11-30 07:24 | SUR.OPER ---
Supine on ESWL table, head on pillow, arms padded and tucked at sides, legs uncrossed.
--- NOTE | 2023-11-30 07:40 | PM.PREOP ---
Pre-operative Note COVID-19 COVID-19 status: Not tested Interval Note History & Physical reviewed/Exam performed by Physician: Yes Changes to H&P: No
[2023-11-30] MEDS: CEFAZOLIN 2 GM/100 ML PREMIX 100 ML IV (07:52)
--- NOTE | 2023-11-30 08:25 | PM.OP.1 ---
Procedure & Clinicians Procedure: Left extracorporeal shockwave lithotripsy Same procedure as scheduled: Yes Indications: This very pleasant 27-year-old female presented with complaints of renal colic. She was found to have a left-sided stone. 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 The stone is in the upper pole moiety. Stent is in position and she presents this time for extracorporeal shockwave lithotripsy to treat her stone. Surgeon: Kali Longoria Click Yes if Unassisted: Yes Anesthesia Type: General Operative Notes Findings: At lithotripsy the stent was in good position in the left collecting system the stone was actually visualized. And was treated with 2000 shocks at level 7 and appeared to fragment quite well. No other significant abnormality or change was noted. Closure Type: not applicable Specimen(s): none sent Prosthetic devices, grafts, tissues, transplants, or devices: Stent previously placed Blood products transfused: none Procedure in detail: Procedure in detail: After informed consent was obtained, the patient was identified and brought to the operating room where she is placed in his supine position on the Lithotripter. Once there anesthesia was induced and maintained. Ensuring an adequate level of anesthesia, after time-out and administration of antibiotics the stone was positioned via the imaging system targeted and shockwave delivered at level 7 for a total of 2000 shocks. There was periodic reimaging and re localization of the stone to ensure maximal energy delivery to the stone. A 2000 shockwave the shockwave head was rotated out fluoroscopy performed confirming that the stone had been well treated. At this point the patient was awakened having tolerated the procedure well and was transferred to the postanesthesia care unit for recovery. There were no complications Complications: none Post-operative Condition: stable Disposition: PACU Plan for aftercare: Patient to be discharged to home once fully awake and alert patient is to strain her urine and save any fragments to bring to follow-up. Patient will follow-up in my office in 7-10 days with a KUB.
== END 2023-11-30 09:29 | disposition home or self-care (01) ==
PROVIDERS: PCP Physician Assistant; Referring Provider Urology; Visit Provider Urology
PROC: (CPT 50590; principal; 2023-11-30 07:45)
DX: N20.1 Calculus of ureter (principal); Q62.5 Duplication of ureter
CPT/HCPCS: 50590; 82962; J0690; J1100; J2250; J2704; J3010

== ENCOUNTER → 2023-12-08 19:14 | Outpatient (CLI) | payer OTHER, SELFPAY ==
--- NOTE | 2023-12-08 19:16 | DI.RAD.S_ITS ---
PROCEDURE: XR KUB INDICATIONS: kidney stones TECHNIQUE: One view of the abdomen acquired. COMPARISON: [facility], CR, XR KUB, 11/11/2023, 23:28. [facility], CR, XR KUB, 10/25/2023, 11:42. FINDINGS: Surgical changes and devices: Similar appearance of the left double-J ureteral stent. Medial deviation at the level of the renal pelvis. Bowel: Nonobstructive bowel gas pattern Soft tissues: No suspicious calcifications. Bones: No suspicious bony lesions. IMPRESSION: Similar appearance of the left double-J ureteral stent, with medial deviation of the renal pelvic region. No calcified stones identified on radiography. Dictated by: Omar Sanders M.D. on 12/09/2023 at 12:47 Approved by: Omar Sanders M.D. on 12/09/2023 at 12:50
== END ==
PROVIDERS: PCP Physician Assistant; Referring Provider Urology; Visit Provider Urology
DX: N20.0 Calculus of kidney (principal); Z96.0 Presence of urogenital implants
CPT/HCPCS: 74018

== ENCOUNTER → 2023-12-09 08:14 | Outpatient (CLI) | payer OTHER, SELFPAY ==
[2023-12-16 18:38] LABS: Ca oxalate dihydrate 20 % (.); Ca oxalate monohydr 10 % (.); Hydroxyapatite 70 % (.); Size 3x2 mm (.)
== END ==
PROVIDERS: PCP Physician Assistant; Visit Provider Urology
DX: R39.9 Unspecified symptoms and signs involving the genitourinary system (principal); N20.0 Calculus of kidney
CPT/HCPCS: 82365; 87077; 87086

== ENCOUNTER → 2023-12-15 15:44 | Outpatient (CLI) | payer OTHER, SELFPAY | PROVIDERS: PCP Physician Assistant; Visit Provider Urology | DX: N20.0 Calculus of kidney (principal); R31.29 Other microscopic hematuria; Z96.0 Presence of urogenital implants | CPT/HCPCS: 52310; 81002; 87086 ==

== ENCOUNTER 2025-01-23 18:45 | Emergency (ER) | payer OTHER, SELFPAY ==
[2025-01-23 19:15] VITALS: BP 105/65; PULSE 84; RESP 16; TEMP 37.1; O2SAT 99; BMI 16.9
[2025-01-23 22:13] VITALS: PULSE 80; O2SAT 93
--- NOTE | 2025-01-23 22:13 | ED.PSYCH ---
HPI - Psych General Chief Complaint: Psychiatric Symptoms Stated Complaint: Weakness, loss of appetite x 3 days Time Seen by Provider: 01/23/25 22:12 Source: patient Mode of arrival: Family Vehicle History of Present Illness HPI Narrative: 29-year-old female patient with a history of depression, anxiety, possible PTSD and eating disorder in which she has been hospitalized from not eating well. She does not have true anorexia or bulimia diagnosis. But she has been more depressed is weak and not eating well and is concerned that she might need to be admitted. She feels weak. She is not suicidal. Related Data Home Medications ?Medication ?Instructions ?Recorded ?Confirmed ondansetron 4 mg disintegrating 4 mg PO Q6H PRN nausea/vomiting 11/30/23 12/15/23 tablet Previous Rx's ?Medication ?Instructions ?Recorded fluconazole 100 mg tablet 100 mg PO DAILY #3 tabs 12/13/23 tamsulosin 0.4 mg capsule 0.8 mg (2 x 0.4 mg) PO DAILY #30 12/17/23 caps Allergies Allergy/AdvReac Type Severity Reaction Status Date / Time amoxicillin Allergy Intermediate hives Verified 01/23/25 19:16 Review of Systems Review of Systems ROS Unobtainable: All systems reviewed & are unremarkable except as noted in HPI and below Psychiatric Psychiatric: Reports as per HPI Patient History Medical History (Updated 01/23/25 @ 23:27 by Frandy Hunt MD) Phosphate kidney stone Calcium oxalate stones Retained ureteral stent Right lateral abdominal pain Left renal stone Duplicated left renal collecting system Microscopic hematuria Hx of migraines History of depression Hx of primary hypertension Hx of iron deficiency anemia Surgical History Hx of cystoscopy (11/02/23) Hx of section Family History Mother Diabetes mellitus Father Diabetes mellitus Grandfather Diabetes mellitus Social History marital status: number of children: 2 household members: spouse and children alcohol intake: never caffeine: Yes tobacco type: cigarettes and vaping Exam Initial Vital Signs Initial Vital Signs: Vital Signs Temperature 98.7 F 01/23/25 19:15 Pulse Rate 84 01/23/25 19:15 Respiratory Rate 16 01/23/25 19:15 Blood Pressure 105/65 01/23/25 19:15 Pulse Oximetry 99 01/23/25 19:15 Oxygen Delivery Method Room Air 01/23/25 19:15 Const General: cooperative, healthy appearing, comfortable and well developed HENRI Head: normal to inspection Neck Neck: normal visual inspection Chest Chest: normal inspection of the chest Resp Effort & Inspection: normal respiratory effort Auscultation: clear to auscultation bilaterally Cardio Rate: regular rate Rhythm: regular rhythm GI Inspection: normal to inspection Palpation: soft and No tender Auscultation: normal bowel sounds Psych Appearance: grossly normal and well kempt Speech and Movement: speech and movement normal Mood: congruent mood Affect: normal affect Attitude: cooperative Course Orders Ordered: ED Orders 01/23/25 22:09 Ictotest Urine Stat Urinalysis and Microscopic Stat 01/23/25 22:22 Complete Blood Count AUTO DIFF Stat Comprehensive Metabolic Panel Stat Discontinued Medications Lactated Ringer's (Lactated Ringers) 1,000 mls @ 1,000 mls/hr IV BOLUS ONE Stop: 01/23/25 23:20 Last Infusion: 01/23/25 23:35 Dose: Infused Documented By: Admin: 01/23/25 22:35 Dose: 1,000 mls/hr Documented By: SAEID Ondansetron HCl (Ondansetron 4 Mg/2 Ml Inj) 4 mg IV NOW ONE Stop: 01/23/25 22:33 Last Admin: 01/23/25 22:38 Dose: 4 mg Documented By: SAEID Vital Signs Vital signs: Vital Signs - 8 hr 01/23/25 23:00 01/23/25 23:00 01/23/25 23:30 Pulse Rate 74 99 H Respiratory Rate 16 Blood Pressure 96/63 Pulse Oximetry 100 100 [facility] - Psych Medical Records Attestation: I reviewed the patient's medical records. (CBC, CMP and urinalysis unremarkable) Lab Data 01/23/25 22:22 01/23/25 22:22 Labs: Lab Results 01/23/25 01/23/25 Range/Units 22:09 22:22 WBC 6.2 (4.5-11.0) X10^3/uL RBC 4.21 (4.0-5.2) X10^6/uL Hgb 13.4 (12.0-16.0) g/dL Hct 38.3 (36-46) % MCV 91.0 (80-100) fL MCH 31.9 (26-34) PG MCHC 35.1 (30-36) % RDW 13.1 (11.6-14.8) % Plt Count 279 (150-400) X10^3/uL Neut % (Auto) 70.8 (50-75) % Lymph % (Auto) 21.4 L (25-40) % [place] % (Auto) 6.7 (3-14) % Eos % (Auto) 0.5 L (2-4) % Baso % (Auto) 0.6 (0-2) % Neut # (Auto) 4400 (3811-1899) /uL Lymph # (Auto) 1300 (6860-7692) /uL [place] # (Auto) 400 (0-900) /uL Eos # (Auto) 0 (0-450) /uL Baso # (Auto) 0 (0-100) /uL Sodium 138 (137-145) mmol/L Potassium 3.4 (3.4-5.1) mmol/L Chloride 102 (98-107) mmol/L Carbon Dioxide 21 L (22-32) mmol/L BUN 10 (7-17) mg/dL Creatinine 0.66 (0.52-1.04) mg/dL Estimated GFR > 60 (>60) mL/min BUN/Creatinine Ratio 15.2 (6-22) Glucose 80 (70-99) mg/dL Calcium 9.1 (8.4-10.2) mg/dL Total Bilirubin 1.3 (0.2-1.3) mg/dL AST 27 (14-36) IU/L ALT 19 (<35) IU/L Alkaline Phosphatase 85 (38-126) U/L Total Protein 8.3 H (6.3-8.2) g/dL Albumin 5.1 H (3.5-5.0) g/dL Globulin 3.2 (1.7-4.1) g/dL Albumin/Globulin Ratio 1.6 (1.0-2.8) Urine Color Yellow Urine Appearance Clear Urine pH 6.0 (4.5-8.0) Ur Specific [place] 1.025 (1.000-1.035) Urine Protein Trace H (Negative) Urine Glucose (UA) Negative (Negative) g/dL Urine Ketones 3+ H (NEGATIVE) Urine Occult Blood 2+ H (Negative) Urine Nitrate Negative (Negative) Urine Bilirubin 1+ H (NEGATIVE) Ur Bilirubin Confirm Negative (Negative) Urine Urobilinogen 1.0 (0.2) E.U./dL Ur Leukocyte Esterase Negative (NEGATIVE) Urine RBC 0-1/hpf (0-5/HPF) Urine WBC None seen (0-5/HPF) Ur Squamous Epith Cells 0-1 /hpf D (0-5/HPF) Urine Bacteria None seen (None) Ur Culture Indicated? Cult not indicated Vol Urine Centrifuged 10ml (spun) Point of Care Testing Test Results Negative MDM Narrative Medical decision making narrative: CBC and CMP unremarkable. Vital signs stable and improved with IV fluids. Minimal symptoms in the ER nonsuicidal. Patient essentially has depression and chronic intermittent problems with anorexia but does not meet criteria for admission based on her presentation and lab work today. She has comfortable with that and will contact her primary care physician tomorrow morning. She knows to return to the ER for any worsening symptoms. Discharge Plan Departure Patient Disposition: Home Clinical Impression: Depression, Anorexia Instructions: Depression, Anorexia-Adult, DI for Poor Appetite Activity Restrictions/Additional Instructions: Plan: Hydration and nourishment. May need protein shakes to supplement and feet for calories up. Contact your provider tomorrow to discuss symptoms. Return to the ER if worse Prescriptions: No Action fluconazole 100 mg tablet 100 mg PO DAILY Qty: 3 0RF Rx Instructions: HOLD Ondansetron while taking this medication tamsulosin 0.4 mg capsule 0.8 mg PO DAILY Qty: 30 0RF ondansetron 4 mg tablet,disintegrating 4 mg PO Q6H PRN (Reason: nausea/vomiting) Stand Alone Forms: Patient Portal/API
[2025-01-23 22:30] VITALS: BP 91/60; PULSE 63; RESP 15; O2SAT 99
[2025-01-23 22:33] LABS: Add Manual Diff / Slide Review NO; Hematocrit 38.3 % (36-46); Hemoglobin 13.4 g/dL (12.0-16.0); Lymphocytes Absolute Auto 1300 /uL (1100-4500); Mean Corpuscular HGB Conc 35.1 % (30-36); Mean Corpuscular Hemoglobin 31.9 PG (26-34); Mean Corpuscular Volume 91.0 fL (80-100); Platelet Count 279 X10^3/uL (150-400)
[2025-01-23] MEDS: LACTATED RINGERS 1,000 ML 1000 ML IV (22:35)
[2025-01-23] MEDS: ONDANSETRON 4 MG/2 ML INJ IV (22:38)
[2025-01-23 22:47] LABS: Appearance Urine UA CLEAR; Bilirubin Urine UA 1+ (NEGATIVE); Color Urine UA YELLOW; Glucose Urine UA NEGATIVE (Negative); Ketones Urine UA 3+ (NEGATIVE); Leukocyte Esterase Urine UA NEGATIVE (NEGATIVE); Nitrite Urine UA NEGATIVE (Negative); Occult Blood Urine UA 2+ (Negative); Protein Urine UA TRACE (Negative); Specific Gravity Urine UA 1.025 (1.000-1.035); Urobilinogen Urine UA 1.0 E.U./dL (0.2)
[2025-01-23 22:50] LABS: Alanine Aminotransferase 19 IU/L (<35); Albumin 5.1 g/dL (3.5-5.0); Albumin Globulin Ratio 1.6 (1.0-2.8); Alkaline Phosphatase 85 U/L (38-126); Blood Urea Nitrogen 10 mg/dL (7-17); Calcium 9.1 mg/dL (8.4-10.2); Carbon Dioxide 21 mmol/L (22-32); Chloride 102 mmol/L (98-107); Estimated Glomerular Filt Rate > 60 mL/min (>60); Globulin 3.2 g/dL (1.7-4.1); Glucose 80 mg/dL (70-99); HEMOLYSIS < 15 (0-50); Potassium 3.4 mmol/L (3.4-5.1); Sodium 138 mmol/L (137-145); Total Protein 8.3 g/dL (6.3-8.2)
[2025-01-23 22:55] LABS: pH Urine UA 6.0 (4.5-8.0)
[2025-01-23 23:00] VITALS: BP 96/63; PULSE 74; O2SAT 100
[2025-01-23 23:12] LABS: Culture Indicated Urine Cult Not Indicated; Ictotest Urine Negative (Negative)
[2025-01-23 23:30] VITALS: PULSE 99; RESP 16; O2SAT 100
== END 2025-01-23 23:36 | disposition home or self-care (01) ==
PROVIDERS: Emergency Provider Emergency Medicine
DX: F32.A Depression, unspecified (principal); R63.0 Anorexia
CPT/HCPCS: 36415; 80053; 81001; 81025; 85025; 96361; 96374; 99284; J2405